=== PATIENT | male | born 1995 | race African-American/Black ===

== ENCOUNTER 2017-11-02 10:13 | Emergency (ER) | payer SELFPAY ==
[2017-11-02] MEDS ORDERED: Ibuprofen 800 MG TAB ONE (10:44)
== END 2017-11-02 11:00 | disposition home or self-care (01) ==
LOC: MADERS 10:13
DX: J02.9 Acute pharyngitis, unspecified (principal)
CPT/HCPCS: 87081; 87430; 99283

== ENCOUNTER 2018-04-07 19:28 | Emergency (ER) | payer SELFPAY ==
[2018-04-07] MEDS ORDERED: Ondansetron ODT 4 MG TAB ONE (20:16)
[2018-04-07] MEDS ORDERED: Ibuprofen 800 MG TAB ONE (20:16)
== END 2018-04-07 20:30 | disposition home or self-care (01) ==
LOC: MADERS 19:28
DX: J11.1 Influenza due to unidentified influenza virus with other respiratory manifestations (principal)
CPT/HCPCS: 99283; Q0162

== ENCOUNTER 2023-02-09 10:55 | Emergency (ER) | payer SELFPAY ==
[2023-02-09] MEDS ORDERED: Ibuprofen 800 MG TAB ONE (11:37)
== END 2023-02-09 11:50 | disposition home or self-care (01) ==
LOC: MADERS 10:55
DX: M94.0 Chondrocostal junction syndrome [Tietze] (principal); F17.290 Nicotine dependence, other tobacco product, uncomplicated
CPT/HCPCS: 99284

== ENCOUNTER 2024-03-10 10:06 | Emergency (ER) | payer SELFPAY ==
[2024-03-10] MEDS ORDERED: Lidocaine 4% Patch ONE (10:29)
[2024-03-10] MEDS ORDERED: Ibuprofen 800 MG TAB ONE (10:29)
== END 2024-03-10 10:40 | disposition home or self-care (01) ==
LOC: MADERS 10:06
DX: S39.012A Strain of muscle, fascia and tendon of lower back, initial encounter (principal); E66.9 Obesity, unspecified; F17.290 Nicotine dependence, other tobacco product, uncomplicated; X50.9XXA Other and unspecified overexertion or strenuous movements or postures, initial encounter
CPT/HCPCS: 99283